=== PATIENT | male | born 1960 | race Caucasian/White ===

== ENCOUNTER 2024-07-04 14:26 | Inpatient (IN) | payer MEDICARE, OTHER ==
[~2024-07-04] VITALS: Ht 165.1 cm; Wt 65.8 kg
[2024-07-04] MEDS ORDERED: NA P133E RC (15:07)
[2024-07-04] MEDS ORDERED: ATOR80TA PO (15:07)
[2024-07-04] MEDS ORDERED: ACET-3117 PO (15:07)
[2024-07-04] MEDS ORDERED: MAGN400O6 PO (15:07)
[2024-07-04] MEDS ORDERED: MECL-159 PO (15:07)
[2024-07-04] MEDS ORDERED: DICLOFENAC GEL TOP (15:07)
[2024-07-04] MEDS ORDERED: MULT-225 PO (15:07)
[2024-07-04] MEDS ORDERED: AMIN30LI2 PO (15:07)
[2024-07-04] MEDS ORDERED: CHOL100045 PO (15:07)
[2024-07-04] MEDS ORDERED: BENA10TA74 PO (15:07)
[2024-07-04] MEDS ORDERED: ZINC220T4 PO (15:07)
[2024-07-04] MEDS ORDERED: CARB30DR18 EACHEYE (15:07)
[2024-07-04] MEDS ORDERED: BISA10SU95 RC (15:07)
[2024-07-04] MEDS ORDERED: POLY17PO4 GT (15:07)
[2024-07-04] MEDS ORDERED: METO-295 PO (15:07)
[2024-07-04] MEDS ORDERED: FAMO-132 PO (15:07)
[2024-07-04] MEDS ORDERED: ASCO500C18 PO (15:07)
[2024-07-04] MEDS ORDERED: SENN8.6T19 PO (15:07)
[2024-07-04] MEDS ORDERED: INSU100V39 SQ (15:07)
[2024-07-04] MEDS ORDERED: ASPI81TA31 PO (15:07)
[2024-07-04] MEDS ORDERED: ONDA4TAB5 PO (15:07)
[2024-07-04] MEDS ORDERED: NUT.237L70 PO (15:07)
[2024-07-04] MEDS ORDERED: INSULIN GLARGINE SUBCUT (15:07)
[2024-07-04] MEDS ORDERED: METF-440 PO (15:07)
[2024-07-04] MEDS ORDERED: MEGE400O5 PO (15:07)
[2024-07-04] MEDS ORDERED: FINA5TAB11 PO (15:07)
[2024-07-04] MEDS ORDERED: FERR-56 PO (15:07)
[2024-07-04] MEDS ORDERED: POLY119P2 PO (15:07)
[2024-07-04 15:24] LABS: BASOPHILS # (AUTO) 0.1 K/UL (0.0-0.2); BASOPHILS % (AUTO) 0.4 % (0.0-2.0); EOSINOPHILS # (AUTO) 0.1 K/uL (0.0-0.7); EOSINOPHILS % (AUTO) 0.5 % (0.0-7.0); HEMATOCRIT 24.4 % (36.7-47.1); HEMOGLOBIN 7.5 g/dL (12.5-16.3); LYMPHOCYTES # (AUTO) 1.6 K/uL (0.8-4.8); LYMPHOCYTES % (AUTO) 7.7 % (20.5-51.5); MEAN CORPUSCULAR HEMOGLOBIN 23.6 uug (23.8-33.4); MEAN CORPUSCULAR HGB CONC 31 g/dL (32.5-36.3); MEAN CORPUSCULAR VOLUME 77.3 fL (73.0-96.2); MONOCYTES # (AUTO) 1.4 K/uL (0.1-1.30); MONOCYTES % (AUTO) 7.1 % (0.0-11.0); NEUTROPHILS # (AUTO) 16.9 K/uL (1.8-8.9); NEUTROPHILS % (AUTO) 84.3 % (38.5-71.5); PLATELET COUNT (AUTO) 646 K/uL (152-348); RED BLOOD CELL COUNT(AUTO) 3.16 MIL/uL (4.06-5.63); RED CELL DISTRIBUTION WIDTH 20.5 % (12.1-16.2); WHITE BLOOD COUNT (AUTO) 20.1 K/uL (3.6-10.2)
[2024-07-04 15:26] LABS: CALCIUM 9.2 mg/dL (8.5-10.1); CARBON DIOXIDE 20 mmol/L (21-32); CHLORIDE 104 mmol/L (98-107); CREATININE 1.3 mg/dL (0.6-1.3); GLUCOSE 187 mg/dL (74-106); POTASSIUM 5.2 mmol/L (3.5-5.1); SODIUM SERUM 136 mmol/L (136-145); UREA NITROGEN, BLOOD 55 mg/dL (7-18)
[2024-07-04 15:29] LABS: DIFFERENTIAL COMMENT 1
[2024-07-04 15:35] LABS: ALANINE AMINOTRANSFERASE 27 U/L (16-63); ALBUMIN 2.2 g/dL (3.4-5.0); ALKALINE PHOSPHATASE 130 U/L (50-136); ASPARTATE AMINOTRANSFERASE 14 U/L (15-37); BILIRUBIN,DIRECT 0.1 mg/dL (0.0-0.2); BILIRUBIN,TOTAL 0.1 mg/dL (0.2-1.0); LIPASE 84 U/L (16-77); TOTAL PROTEIN, SERUM 7.3 g/dL (6.4-8.2)
[2024-07-04 16:41] LABS: IRON, SERUM 27 ug/dL (50-175)
[2024-07-04] MEDS ORDERED: chlorproMAZINE 50 MG/2 ML AMPUL ONE (16:52)
[2024-07-04] MEDS: chlorproMAZINE 50 MG/2 ML AMPUL IV STA (17:13)
[2024-07-04 17:21] LABS: *OCCULT BLOOD STOOL POSITIVE (NEGATIVE)
[2024-07-04] MEDS ORDERED: SWABABLE VALVE TRANSFER SET EA MC ONE (17:28)
[2024-07-04] MEDS ORDERED: IV NORMAL SALINE 250 ML IV ONE (17:28)
[2024-07-04] MEDS ORDERED: IOHEXOL 300MG/ML 100 ML INFUS..BTL ONE (17:28)
[2024-07-04 18:05] LABS: LACTIC ACID 2.3 mmol/L (0.4-2.0)
[2024-07-04] MEDS ORDERED: CEFTRIAXONE /D5W 50ML IVPB **ER PYXIS IV ONE (18:20)
[2024-07-04] MEDS ORDERED: METRONIDAZOLE 500 MG/NS 100ML 100 ML IV ONE (18:20)
[2024-07-04] MEDS: METRONIDAZOLE 500 MG/NS 100ML 100 ML IV ONE (18:24)
[2024-07-04] MEDS: CEFTRIAXONE 1 G in IV DEXTROSE 5% 50 ML IV ONE (18:24)
[2024-07-04] MEDS: IV NORMAL SALINE 1000 ML BAG IV ONE (18:24)
[2024-07-04 20:05] VITALS: BP 162/84; TEMP 98.2; O2SAT 100
[2024-07-04] MEDS ORDERED: MORPHINE SULFATE 2 MG/1 ML DISP.SYRIN IV PRN (20:15)
[2024-07-04] MEDS ORDERED: ACETAMINOPHEN 650 MG SUPP.RECT RC PRN (20:15)
[2024-07-04] MEDS: PANTOPRAZOLE SODIUM 40 MG VIAL IV SCH (20:58)
[2024-07-04] MEDS: IV D5 1/2 NS 1000 ML 1,000 ML IV PRN (20:58)
[2024-07-04] MEDS: ENALAPRILAT DIHYDRATE 1.25 MG/1 ML VIAL IV PRN (21:14)
[2024-07-04] MEDS ORDERED: VANCOMYCIN IV 200 ML ONE (21:15)
[2024-07-04] MEDS ORDERED: PIPERACILLIN/TAZOBACTAM/D5W 50 ML IV ONE ×2 (21:15)
[2024-07-04] MEDS: PIPERACILLIN SODIUM/TAZOBACTAM 3.375 G in IV DEXTROSE 5% 50 ML IV SCH (21:27)
[2024-07-04] MEDS: VANCOMYCIN IV 1,000 MG in IV DEXTROSE 5% 250 ML IV ONE (21:56)
[2024-07-04 22:43] VITALS: BP 148/67; TEMP 98.2; O2SAT 100
[2024-07-05 00:46] VITALS: BP 149/77; TEMP 98.2; O2SAT 96
[2024-07-05 05:10] VITALS: BP 174/90; TEMP 98.8; O2SAT 98
[2024-07-05] MEDS: ONDANSETRON 4 MG/2 ML VIAL IV PRN (05:14)
[2024-07-05 06:39] LABS: BASOPHILS # (AUTO) 0.1 K/UL (0.0-0.2); BASOPHILS % (AUTO) 0.5 % (0.0-2.0); EOSINOPHILS # (AUTO) 0.2 K/uL (0.0-0.7); EOSINOPHILS % (AUTO) 0.9 % (0.0-7.0); HEMATOCRIT 22.8 % (36.7-47.1); LYMPHOCYTES # (AUTO) 2.1 K/uL (0.8-4.8); MEAN CORPUSCULAR HEMOGLOBIN 25.3 uug (23.8-33.4); MEAN CORPUSCULAR HGB CONC 32 g/dL (32.5-36.3); MONOCYTES # (AUTO) 1.6 K/uL (0.1-1.30); MONOCYTES % (AUTO) 8.7 % (0.0-11.0); NEUTROPHILS # (AUTO) 14.8 K/uL (1.8-8.9); NEUTROPHILS % (AUTO) 78.9 % (38.5-71.5); PLATELET COUNT (AUTO) 602 K/uL (152-348); RED BLOOD CELL COUNT(AUTO) 2.89 MIL/uL (4.06-5.63); RED CELL DISTRIBUTION WIDTH 20.6 % (12.1-16.2); WHITE BLOOD COUNT (AUTO) 18.8 K/uL (3.6-10.2)
[2024-07-05 06:54] LABS: DIFFERENTIAL COMMENT 1; HEMOGLOBIN 7.3 g/dL (12.5-16.3)
[2024-07-05 07:02] LABS: ALBUMIN 2.1 g/dL (3.4-5.0); BILIRUBIN,TOTAL 0.2 mg/dL (0.2-1.0); CALCIUM 8.5 mg/dL (8.5-10.1); CREATININE 1.2 mg/dL (0.6-1.3); MAGNESIUM 1.6 mg/dL (1.8-2.4); PHOSPHOROUS 3.5 mg/dL (2.5-4.9); POTASSIUM 4.8 mmol/L (3.5-5.1); TOTAL PROTEIN, SERUM 6.7 g/dL (6.4-8.2)
[2024-07-05 08:00] VITALS: BP 149/80; TEMP 98.5; O2SAT 97
[2024-07-05] MEDS ORDERED: DEXTROSE 50% 50 ML DISP.SYRIN IV PRN (08:30)
[2024-07-05 08:37] LABS: THYROID STIMULATING HORMONE 1.929 mIU/mL (0.358-3.740)
[2024-07-05] MEDS: PIPERACILLIN SODIUM/TAZOBACTAM 3.375 G in IV DEXTROSE 5% 50 ML IV SCH (09:17)
[2024-07-05] MEDS: VANCOMYCIN HCL 750 MG in IV DEXTROSE 5% 250 ML IV SCH (09:51)
[2024-07-05] MEDS: MAGNESIUM SULFATE/D5W 100 ML IV SCH (11:17)
[2024-07-05] MEDS: BLOOD SUGAR DIAGNOSTIC 1 EACH STRIP VI SCH (11:22)
[2024-07-05] MEDS: INSULIN REGULAR, HUMAN 1000 UNIT/10 ML VIAL SQ PRN (11:26)
[2024-07-05 12:00] VITALS: BP 144/63; TEMP 97.3; O2SAT 97
[2024-07-05 16:01] VITALS: BP 167/85; TEMP 97.8; O2SAT 99
[2024-07-05 16:38] LABS: FERRITIN 352 ng/mL (26-388)
[2024-07-05 16:51] LABS: *BILIRUBIN,URIN NEGATIVE (NEGATIVE); *BLOOD, URINE NEGATIVE (NEGATIVE); *CLARITY,URINE CLEAR (CLEAR); *COLOR,URINE YELLOW (YELLOW); *KETONES,URINE NEGATIVE (NEGATIVE); *PROTEIN,URINE 1+ (NEGATIVE); *UROBILINOGEN,URINE 0.2 E.U./dl (NORMAL); LEUKOCYTE ESTERASE ,URINE NEGATIVE (NEGATIVE); NITRITE, URINE NEGATIVE (NEGATIVE)
[2024-07-05 16:53] LABS: UGLUCOSE 3+ (NEGATIVE)
[2024-07-05 16:54] LABS: RBC,URINE 0-3 /HPF (0-3); WBC,URINE 0-3 /HPF (0-3)
[2024-07-05 17:12] LABS: *RHEUMATOID FACTOR SCREEN NEGATIVE (NEGATIVE)
[2024-07-05 19:30] VITALS: BP 168/54; TEMP 98.3; O2SAT 98
[2024-07-05] MEDS ORDERED: PANTOPRAZOLE SODIUM 40 MG VIAL IV SCH (21:00)
[2024-07-05] MEDS: BACLOFEN 10 MG TABLET PO SCH (21:22)
[2024-07-05 23:03] LABS: HEMATOCRIT 21.8 % (36.7-47.1)
[2024-07-05 23:43] LABS: HEMOGLOBIN 6.8 g/dL (12.5-16.3)
[2024-07-06 00:29] VITALS: BP 171/71; TEMP 98.2; O2SAT 96
[2024-07-06 06:24] LABS: CALCIUM 8.9 mg/dL (8.5-10.1); CREATININE 1.1 mg/dL (0.6-1.3); POTASSIUM 4.1 mmol/L (3.5-5.1)
[2024-07-06 06:49] LABS: BASOPHILS # (AUTO) 0.2 K/UL (0.0-0.2); BASOPHILS % (AUTO) 1.1 % (0.0-2.0); DIFFERENTIAL COMMENT 0; EOSINOPHILS # (AUTO) 0.6 K/uL (0.0-0.7); EOSINOPHILS % (AUTO) 3.7 % (0.0-7.0); HEMATOCRIT 21.4 % (36.7-47.1); LYMPHOCYTES # (AUTO) 2.5 K/uL (0.8-4.8); LYMPHOCYTES % (AUTO) 16.4 % (20.5-51.5); MEAN CORPUSCULAR HEMOGLOBIN 25.4 uug (23.8-33.4); MEAN CORPUSCULAR HGB CONC 33 g/dL (32.5-36.3); MEAN CORPUSCULAR VOLUME 76.9 fL (73.0-96.2); MONOCYTES # (AUTO) 1.3 K/uL (0.1-1.30); MONOCYTES % (AUTO) 8.7 % (0.0-11.0); NEUTROPHILS # (AUTO) 10.8 K/uL (1.8-8.9); NEUTROPHILS % (AUTO) 70.1 % (38.5-71.5); PLATELET COUNT (AUTO) 581 K/uL (152-348); RED BLOOD CELL COUNT(AUTO) 2.78 MIL/uL (4.06-5.63); RED CELL DISTRIBUTION WIDTH 20.8 % (12.1-16.2); WHITE BLOOD COUNT (AUTO) 15.4 K/uL (3.6-10.2)
[2024-07-06 07:10] LABS: HEMOGLOBIN 7.1 g/dL (12.5-16.3)
[2024-07-06 08:06] LABS: *IMMUNOGLOBULIN G, SERUM 1335 mg/dL (603-1613); IMMUNOGLOBULIN A, SERUM 520 mg/dL (61-437); IMMUNOGLOBULIN M, SERUM 113 mg/dL (20-172)
[2024-07-06 09:08] LABS: FOLATE (FOLIC ACID), SERUM 2.4 ng/mL (>3.0)
[2024-07-06 10:10] LABS: *ANTI-SCLERODERMA-70 AB <0.2 AI (0.0-0.9); *RNP ANTIBODIES <0.2 AI (0.0-0.9); *SJOGREN'S ANTI-SS-A <0.2 AI (0.0-0.9); *SJOGREN'S ANTI-SS-B <0.2 AI (0.0-0.9); *SMITH ANTIBODIES <0.2 AI (0.0-0.9); ANTI-DNA(DS) AB, QN <1 IU/mL (0-9); ANTI-NUCLEAR AB DIRECT Negative (Negative)
[2024-07-06 11:10] LABS: FREE KAPPA LT CHAINS SERUM 63.5 mg/L (3.3-19.4); FREE LAMBDA LT CHAIN SERUM 42.4 mg/L (5.7-26.3); KAPPA/LAMBDA RATIO SERUM 1.5 (0.26-1.65)
[2024-07-06 12:00] VITALS: BP 157/86; TEMP 98.3; O2SAT 98
[2024-07-06 13:13] LABS: HEMOGLOBIN 7.1 g/dL (12.5-16.3)
[2024-07-06] MEDS: FOLIC ACID 1 MG TABLET PO SCH (15:22)
[2024-07-06] MEDS: SOD FERRIC GLUC COMPLX/SUCROSE 125 MG in IV NORMAL SALINE 100 ML IV SCH (15:24)
[2024-07-06 16:00] VITALS: BP 163/82; TEMP 98.5; O2SAT 100
[2024-07-06 20:14] VITALS: BP 130/73; TEMP 98.6; O2SAT 98
[2024-07-07 06:28] LABS: BASOPHILS # (AUTO) 0.2 K/UL (0.0-0.2); BASOPHILS % (AUTO) 1.1 % (0.0-2.0); EOSINOPHILS # (AUTO) 0.6 K/uL (0.0-0.7); EOSINOPHILS % (AUTO) 4.6 % (0.0-7.0); HEMATOCRIT 23.5 % (36.7-47.1); HEMOGLOBIN 7.7 g/dL (12.5-16.3); LYMPHOCYTES # (AUTO) 2.2 K/uL (0.8-4.8); LYMPHOCYTES % (AUTO) 15.3 % (20.5-51.5); MEAN CORPUSCULAR HEMOGLOBIN 25.5 uug (23.8-33.4); MEAN CORPUSCULAR HGB CONC 33 g/dL (32.5-36.3); MEAN CORPUSCULAR VOLUME 78.3 fL (73.0-96.2); MONOCYTES # (AUTO) 1.5 K/uL (0.1-1.30); MONOCYTES % (AUTO) 10.2 % (0.0-11.0); NEUTROPHILS # (AUTO) 9.8 K/uL (1.8-8.9); NEUTROPHILS % (AUTO) 68.8 % (38.5-71.5); PLATELET COUNT (AUTO) 603 K/uL (152-348); RED CELL DISTRIBUTION WIDTH 20.8 % (12.1-16.2); WHITE BLOOD COUNT (AUTO) 14.2 K/uL (3.6-10.2)
[2024-07-07 06:43] LABS: POTASSIUM 4.4 mmol/L (3.5-5.1)
[2024-07-07 06:53] LABS: DIFFERENTIAL COMMENT 1
[2024-07-07 07:09] LABS: A/G RATIO 0.7 (0.7-1.7); ALBUMIN 2.4 g/dL (2.9-4.4); ALPHA-1-GLOBULIN 0.3 g/dL (0.0-0.4); ALPHA-2-GLOBULIN 0.9 g/dL (0.4-1.0); BETA GLOBULIN 1.1 g/dL (0.7-1.3); GAMMA GLOBULIN 1.2 g/dL (0.4-1.8); GLOBULIN, TOTAL 3.5 g/dL (2.2-3.9); M-SPIKE Not Observed g/dL (Not Observed); PROTEIN, TOTAL 5.9 g/dL (6.0-8.5)
[2024-07-07 07:10] LABS: CALCIUM 9.5 mg/dL (8.5-10.1); CREATININE 1.1 mg/dL (0.6-1.3)
[2024-07-07] MEDS ORDERED: SWABABLE VALVE TRANSFER SET EA MC ONE (09:50)
[2024-07-07] MEDS ORDERED: IOHEXOL 300MG/ML 100 ML INFUS..BTL ONE (09:50)
[2024-07-07] MEDS ORDERED: IV NORMAL SALINE 250 ML IV ONE (09:50)
[2024-07-07 11:57] VITALS: BP 152/77; TEMP 97.5; O2SAT 94
[2024-07-07 16:15] VITALS: BP 142/95; TEMP 99.2; O2SAT 96
[2024-07-07] MEDS: LACTULOSE 20 G/30 ML LIQUID UDC PO ONE (18:52)
[2024-07-07 19:00] VITALS: BP 168/86; TEMP 98.1; O2SAT 97
[2024-07-07] MEDS: PANTOPRAZOLE SODIUM 40 MG TABLET.DR PO SCH (20:16)
[2024-07-07] MEDS ORDERED: VANCOMYCIN HCL 750 MG in IV DEXTROSE 5% 250 ML IV SCH (22:00)
[2024-07-08] VITALS (10 sets, daily range): BP systolic 96–164; BP diastolic 53–116; TEMP 97.5–99.3; O2SAT 97–99
[2024-07-08 06:43] LABS: BASOPHILS # (AUTO) 0.2 K/UL (0.0-0.2); BASOPHILS % (AUTO) 1.3 % (0.0-2.0); EOSINOPHILS # (AUTO) 0.5 K/uL (0.0-0.7); EOSINOPHILS % (AUTO) 3.4 % (0.0-7.0); HEMATOCRIT 22.3 % (36.7-47.1); LYMPHOCYTES # (AUTO) 2.1 K/uL (0.8-4.8); MEAN CORPUSCULAR HGB CONC 32 g/dL (32.5-36.3); MONOCYTES # (AUTO) 1.4 K/uL (0.1-1.30); NEUTROPHILS # (AUTO) 10.9 K/uL (1.8-8.9); NEUTROPHILS % (AUTO) 72.3 % (38.5-71.5); PLATELET COUNT (AUTO) 564 K/uL (152-348); RED BLOOD CELL COUNT(AUTO) 2.82 MIL/uL (4.06-5.63); RED CELL DISTRIBUTION WIDTH 21.2 % (12.1-16.2)
[2024-07-08 06:52] LABS: CALCIUM 8.9 mg/dL (8.5-10.1); CREATININE 1.2 mg/dL (0.6-1.3); POTASSIUM 4.3 mmol/L (3.5-5.1)
[2024-07-08 07:01] LABS: DIFFERENTIAL COMMENT 1
[2024-07-08] MEDS: MIRALAX 17 GM POWD.PACK PO SCH (09:25)
[2024-07-08 13:22] LABS: HEMATOCRIT 22.3 % (36.7-47.1)
[2024-07-08 13:24] LABS: HEMOGLOBIN 7.1 g/dL (12.5-16.3)
[2024-07-09 06:30] VITALS: BP 192/97; TEMP 99.1; O2SAT 97
[2024-07-09 06:47] LABS: BASOPHILS # (AUTO) 0.1 K/UL (0.0-0.2); BASOPHILS % (AUTO) 0.8 % (0.0-2.0); EOSINOPHILS # (AUTO) 0.4 K/uL (0.0-0.7); EOSINOPHILS % (AUTO) 2.9 % (0.0-7.0); HEMATOCRIT 25.9 % (36.7-47.1); HEMOGLOBIN 8.7 g/dL (12.5-16.3); LYMPHOCYTES # (AUTO) 2.1 K/uL (0.8-4.8); MEAN CORPUSCULAR HEMOGLOBIN 27.2 uug (23.8-33.4); MEAN CORPUSCULAR HGB CONC 34 g/dL (32.5-36.3); MEAN CORPUSCULAR VOLUME 81.2 fL (73.0-96.2); MONOCYTES # (AUTO) 1.5 K/uL (0.1-1.30); MONOCYTES % (AUTO) 10.8 % (0.0-11.0); NEUTROPHILS # (AUTO) 9.9 K/uL (1.8-8.9); NEUTROPHILS % (AUTO) 70.5 % (38.5-71.5); PLATELET COUNT (AUTO) 579 K/uL (152-348); RED BLOOD CELL COUNT(AUTO) 3.19 MIL/uL (4.06-5.63); RED CELL DISTRIBUTION WIDTH 22.2 % (12.1-16.2)
[2024-07-09 06:49] LABS: CALCIUM 9.2 mg/dL (8.5-10.1); CREATININE 1.2 mg/dL (0.6-1.3); POTASSIUM 3.9 mmol/L (3.5-5.1)
[2024-07-09 06:58] LABS: DIFFERENTIAL COMMENT 1
[2024-07-09 07:03] VITALS: BP 192/97; TEMP 99.1; O2SAT 97
[2024-07-09] MEDS: BENZOCAINE/MENTH/CETYLPYRD LOZENGE MM PRN (11:12)
[2024-07-09 12:00] VITALS: BP 150/86; TEMP 97; O2SAT 97
[2024-07-09] MEDS: SUCRALFATE 1 G TABLET PO SCH (12:27)
[2024-07-09] MEDS: GLUCERNA SHAKE 237 ML CAN PO SCH (17:39)
[2024-07-09 19:00] VITALS: BP 164/85; TEMP 98.4; O2SAT 97
[2024-07-09 20:22] VITALS: BP 142/82; O2SAT 94
[2024-07-10 06:00] VITALS: BP 175/89; TEMP 98; O2SAT 100
[2024-07-10 06:31] LABS: BASOPHILS # (AUTO) 0.1 K/UL (0.0-0.2); BASOPHILS % (AUTO) 0.9 % (0.0-2.0); EOSINOPHILS # (AUTO) 0.4 K/uL (0.0-0.7); EOSINOPHILS % (AUTO) 3.3 % (0.0-7.0); HEMATOCRIT 26.5 % (36.7-47.1); HEMOGLOBIN 8.8 g/dL (12.5-16.3); LYMPHOCYTES # (AUTO) 2.2 K/uL (0.8-4.8); LYMPHOCYTES % (AUTO) 17.5 % (20.5-51.5); MEAN CORPUSCULAR HEMOGLOBIN 26.9 uug (23.8-33.4); MEAN CORPUSCULAR HGB CONC 33 g/dL (32.5-36.3); MEAN CORPUSCULAR VOLUME 81.1 fL (73.0-96.2); MONOCYTES # (AUTO) 1.4 K/uL (0.1-1.30); MONOCYTES % (AUTO) 11.4 % (0.0-11.0); NEUTROPHILS # (AUTO) 8.4 K/uL (1.8-8.9); NEUTROPHILS % (AUTO) 66.9 % (38.5-71.5); PLATELET COUNT (AUTO) 525 K/uL (152-348); RED BLOOD CELL COUNT(AUTO) 3.27 MIL/uL (4.06-5.63); RED CELL DISTRIBUTION WIDTH 22.3 % (12.1-16.2); WHITE BLOOD COUNT (AUTO) 12.5 K/uL (3.6-10.2)
[2024-07-10 06:33] LABS: CALCIUM 9.3 mg/dL (8.5-10.1); CREATININE 1.1 mg/dL (0.6-1.3); POTASSIUM 3.8 mmol/L (3.5-5.1)
[2024-07-10 06:43] LABS: DIFFERENTIAL COMMENT 1
[2024-07-10 11:40] VITALS: BP 149/81; TEMP 98.3; O2SAT 100
[2024-07-10 15:46] VITALS: BP 147/85; TEMP 98.1; O2SAT 99
[2024-07-10 16:57] VITALS: O2SAT 99
[2024-07-10 19:55] VITALS: BP 152/79; TEMP 97.7; O2SAT 98
[2024-07-10] MEDS: MIRALAX 17 GM POWD.PACK PO SCH (22:00)
[2024-07-11 05:15] VITALS: BP 170/90; TEMP 97.8; O2SAT 99
[2024-07-11 07:34] LABS: HEMATOCRIT 24.9 % (36.7-47.1); LYMPHOCYTES % (AUTO) 16.9 % (20.5-51.5); MEAN CORPUSCULAR HEMOGLOBIN 26.4 uug (23.8-33.4); MEAN CORPUSCULAR HGB CONC 32 g/dL (32.5-36.3); MEAN CORPUSCULAR VOLUME 81.8 fL (73.0-96.2); NEUTROPHILS % (AUTO) 68.6 % (38.5-71.5); PLATELET COUNT (AUTO) 463 K/uL (152-348); RED BLOOD CELL COUNT(AUTO) 3.04 MIL/uL (4.06-5.63); RED CELL DISTRIBUTION WIDTH 22.5 % (12.1-16.2); WHITE BLOOD COUNT (AUTO) 13.3 K/uL (3.6-10.2)
[2024-07-11 07:35] LABS: BASOPHILS # (AUTO) 0.1 K/UL (0.0-0.2); BASOPHILS % (AUTO) 0.7 % (0.0-2.0); EOSINOPHILS # (AUTO) 0.4 K/uL (0.0-0.7); LYMPHOCYTES # (AUTO) 2.2 K/uL (0.8-4.8); MONOCYTES # (AUTO) 1.4 K/uL (0.1-1.30); MONOCYTES % (AUTO) 10.8 % (0.0-11.0); NEUTROPHILS # (AUTO) 9.1 K/uL (1.8-8.9)
[2024-07-11 08:18] LABS: CALCIUM 9.3 mg/dL (8.5-10.1); CREATININE 1.2 mg/dL (0.6-1.3)
[2024-07-11 13:18] VITALS: BP 183/94
== END 2024-07-11 15:10 | DRG 812 ==
LOC: ER 14:26 → TELE3 17:55 → MEDSURG3 07-05 12:39
PROVIDERS: ADMIT Internal Medicine; ATTEND Internal Medicine
PROC: 05HB33Z Insertion of Infusion Device into Right Basilic Vein, Percutaneous Approach (ICD-10-PCS; principal; 2024-07-05)
PROC: 05HC33Z Insertion of Infusion Device into Left Basilic Vein, Percutaneous Approach (ICD-10-PCS; 2024-07-08)
PROC: 30233N1 Transfusion of Nonautologous Red Blood Cells into Peripheral Vein, Percutaneous Approach (ICD-10-PCS; 2024-07-08)
DX: D50.0 Iron deficiency anemia secondary to blood loss (chronic) (principal); R65.10 Systemic inflammatory response syndrome (SIRS) of non-infectious origin without acute organ dysfunction; D68.59 Other primary thrombophilia; E11.52 Type 2 diabetes mellitus with diabetic peripheral angiopathy with gangrene; K92.2 Gastrointestinal hemorrhage, unspecified; I70.261 Atherosclerosis of native arteries of extremities with gangrene, right leg; E87.20 Acidosis, unspecified; E44.0 Moderate protein-calorie malnutrition; M48.56XA Collapsed vertebra, not elsewhere classified, lumbar region, initial encounter for fracture; I69.051 Hemiplegia and hemiparesis following nontraumatic subarachnoid hemorrhage affecting right dominant side; L97.518 Non-pressure chronic ulcer of other part of right foot with other specified severity; M86.8X7 Other osteomyelitis, ankle and foot; E11.65 Type 2 diabetes mellitus with hyperglycemia; R06.6 Hiccough; E87.5 Hyperkalemia; R13.10 Dysphagia, unspecified; K21.9 Gastro-esophageal reflux disease without esophagitis; E88.09 Other disorders of plasma-protein metabolism, not elsewhere classified; Z68.24 Body mass index [BMI] 24.0-24.9, adult; E86.9 Volume depletion, unspecified; E11.22 Type 2 diabetes mellitus with diabetic chronic kidney disease; N18.2 Chronic kidney disease, stage 2 (mild); K59.00 Constipation, unspecified; E78.5 Hyperlipidemia, unspecified; I25.10 Atherosclerotic heart disease of native coronary artery without angina pectoris; L08.9 Local infection of the skin and subcutaneous tissue, unspecified; I12.9 Hypertensive chronic kidney disease with stage 1 through stage 4 chronic kidney disease, or unspecified chronic kidney disease; E11.42 Type 2 diabetes mellitus with diabetic polyneuropathy; E11.319 Type 2 diabetes mellitus with unspecified diabetic retinopathy without macular edema; D75.839 Thrombocytosis, unspecified; E11.621 Type 2 diabetes mellitus with foot ulcer; D72.821 Monocytosis (symptomatic); E53.8 Deficiency of other specified B group vitamins; N40.0 Benign prostatic hyperplasia without lower urinary tract symptoms; I35.8 Other nonrheumatic aortic valve disorders; Z79.4 Long term (current) use of insulin; Z79.84 Long term (current) use of oral hypoglycemic drugs; Z89.021 Acquired absence of right finger(s); Z79.82 Long term (current) use of aspirin; E11.69 Type 2 diabetes mellitus with other specified complication; R09.A2 Foreign body sensation, throat; R97.0 Elevated carcinoembryonic antigen [CEA]; R79.89 Other specified abnormal findings of blood chemistry
CPT/HCPCS: 36415; 70490; 70491; 71045; 71260; 73660; 74018; 82378; 82746; 82784; 83550; 83605; 83690; 83735; 84100; 84155; 84165; 84443; 84484; 85018; 85025; 85730; 86038; 86140; 86334; 86430; 86850; 86900; 86901; 86920; 87040; 88185; 93307; A4663; G0378; J0696; J1815; J2405; J2470; J2543; J2916; J3230; J3370; J3475; J3490; J7042; J7050; P9016; Q9967